=== PATIENT | female | born 1950 | race Caucasian/White ===

== ENCOUNTER 2016-07-14 10:29 | Day surgery (SDC) | payer OTHER ==
--- NOTE | 2016-07-09 09:56 | EKG Report ---
Test Performed on : 07/09/2016 09:32:59 AM Test Reason : PAT Blood Pressure : / mmHG Vent. Rate : 080 BPM Atrial Rate : 080 BPM P-R Int : 162 ms QRS Dur : 090 ms QT Int : 368 ms P-R-T Axes : 063 030 041 degrees QTc Int : 424 ms Normal sinus rhythm. Normal ECG When compared with ECG of 12-NOV-2007 13:34, No significant change was found Confirmed by Marin Grey MD ([id number]) on 07/11/2016 12:32:26 PM
[2016-07-14] MEDS ORDERED: PEPCID ONE (10:51)
[2016-07-14] MEDS ORDERED: KEFZOL 1 GM/D5W 50 ML ONE (10:52)
[2016-07-14] MEDS ORDERED: LR 1,000 ML ONE ×2 (10:52→15:44)
[2016-07-14] MEDS ORDERED: REGLAN ONE (10:52)
[2016-07-14] MEDS ORDERED: NEOSPORIN G.U. IRRIGANT ONE (13:20)
[2016-07-14] MEDS ORDERED: SENSORCAINE 0.5%-EPI 1:200,000 ONE (13:20)
[2016-07-14] MEDS ORDERED: DIPRIVAN 1% ONE (15:16)
[2016-07-14] MEDS ORDERED: FENTANYL ONE (15:16)
[2016-07-14] MEDS ORDERED: VERSED ONE (15:16)
[2016-07-14] MEDS ORDERED: DEMEROL ONE ×2 (15:20→15:27)
[2016-07-14] MEDS ORDERED: PHENERGAN ONE (15:27)
[2016-07-14] MEDS ORDERED: DECADRON ONE (15:44)
[2016-07-14] MEDS ORDERED: ZOFRAN ONE (15:44)
[2016-07-14] MEDS ORDERED: XYLOCAINE-MPF 2% ONE (15:44)
[2016-07-14] MEDS ORDERED: NORCO-10 ONE ×2 (15:59→16:35)
[2016-07-14 16:38] VITALS: BP 130/46
[2016-07-14] MEDS ORDERED: DUONEB (A & A) ONE (16:39)
--- NOTE | 2016-07-14 18:40 | OPERATIVE NOTE ---
PROCEDURE DATE: 07/14/2016 PREOP DIAGNOSIS: Right radial head fracture. POSTOP DIAGNOSIS: Right radial head fracture. PROCEDURE: Right radial head replacement. SURGEON: Hitesh Youssef MD. [employer]: Satya Handley. ANESTHESIA: General. COMPLICATION: None. PROCEDURE IN DETAIL: This 65-year-old female presents for right radial head replacement. Risks, benefits and no guarantees were discussed, and the patient is willing to proceed. She was taken the operating room and satisfactory anesthesia obtained. Right arm was prepped and draped in usual sterile fashion. A time-out was taken to confirm operative site, procedure, and patient. The arm was wrapped with an Esmarch and tourniquet inflated to 250 mmHg. A lateral approach to the distal radial capitellar joint was undertaken through a roughly 3-4 cm incision centered over the lateral epicondyle. The joint capsule was then opened and radial head fracture exposed. Roughly 2/3 of the radial head was noted to be broken off with the remaining 3rd fractured at the neck. Comminution of the radial head was noted and it was not suitable for repair or ORIF. Radial head was removed and retractors placed around the radial neck with care taken to avoid injury to the posterior interosseous nerve. Dissection was limited to above the annular ligament to prevent injury to the posterior interosseous nerve. Sequential broaching up to an 8 mm broach was undertaken. An Acumed 22 mm radial head diameter replacement with a +2 neck sleeve and 8 mm press fit intramedullary stem was trialed with good range of motion and stability implant. The C- arm was used to verify accurate alignment of the trial prosthesis. Trial prosthesis was then removed and a 22 Acumed head with a +2 neck length 8 mm stem assembled and press-fit into the proximal radius with secure axial and rotational stability. The joint was reduced and range of motion the elbow under taken through full range of motion with good stability of the radial capitellar joint. No subluxation or dislocation was noted. The wound was then copiously irrigated and closed in layers with 2-0 Vicryl in the fascia over the arthrotomy, 2-0 Vicryl in the subcu, and 3-0 nylon on the skin. Sterile dressings were applied and surgical site infiltrated with Marcaine. A posterior plaster splint was applied. Tourniquet released with good return of capillary blood flow. The patient was recovered from anesthesia and transferred to the recovery room in stable condition. No intraoperative complications were noted. Instrument count and sponge count was correct at the time of closure.
== END 2016-07-14 17:06 | disposition home or self-care (01) ==
LOC: OPS 10:29
PROVIDERS: ATTEND Orthopaedic Surgery Adult Reconstructive Orthopaedic Surgery
DX: S52.121A Displaced fracture of head of right radius, initial encounter for closed fracture (principal); Z23 Encounter for immunization
CPT/HCPCS: 76000; 85014; 88304; 88311; 93005; 93010; 94640; J0690; J1100; J2175; J2250; J2405; J2550; J3010; J7120